=== PATIENT | male | born 1990 | race Caucasian/White ===

== ENCOUNTER 2017-03-05 10:28 | Emergency (ER) | payer OTHER ==
[2017-03-05 10:29] VITALS: BMI 38.0
[2017-03-05 10:32] VITALS: TEMP 98.1
[2017-03-05] MEDS ORDERED: Sodium Chloride 0.9% 1,000 ML IV ONE (11:14)
[2017-03-05] MEDS ORDERED: Aluminum Hydroxide/Magnesium Hydroxide Susp (30 mL) PO STA (11:14)
[2017-03-05 11:23] VITALS: BP 103/46; PULSE 76; RESP 16; O2SAT 97
[2017-03-05] MEDS ORDERED: Aluminum Hydroxide/Magnesium Hydroxide Susp (30 mL) ONE (11:41)
[2017-03-05 12:07] LABS: BASO # 0.1 K/uL (0.0-0.2); BASO % 0.7 % (0.0-2.0); CHLORIDE 102 mmol/L (98-107); EOS # 0.5 K/uL (0.0-0.7); HEMATOCRIT 45.1 % (35.0-51.0); LYMPH # 1.8 K/uL (1.0-4.3); LYMPH % 11.2 % (20.0-40.0); MEAN CELL VOLUME 83.4 fL (80.0-94.0); MEAN CORPUSCULAR HEMOGLOBIN 27.5 pg (27.0-31.0); MEAN CORPUSCULAR HGB CONC 32.9 g/dL (33.0-37.0); MEAN PLATELET VOLUME 7.7 fL (7.2-11.7); MONO % 6.2 % (0.0-10.0); POTASSIUM 4.3 mmol/L (3.6-5.2); RED CELL DISTRIBUTION WIDTH 14.1 % (11.5-14.5); SODIUM 139 mmol/L (132-148); WHITE BLOOD COUNT 15.8 K/uL (4.8-10.8)
[2017-03-05 12:09] LABS: AST/SGOT 21 U/L (17-59); BILIRUBIN,TOTAL 0.6 mg/dL (0.2-1.3); CARBON DIOXIDE 27 mmol/L (22-30); GFR AFRICAN-AMERICAN > 60
[2017-03-05 12:10] LABS: ALB/GLOB RATIO 1.3 (1.0-2.1); ALKALINE PHOSPHATASE 63 U/L (38-126); ALT/SGPT 47 U/L (21-72); BLOOD UREA NITROGEN 15 mg/dL (9-20); CALCIUM 8.6 mg/dl (8.6-10.4); GLUCOSE,RANDOM 94 mg/dL (75-110); TOTAL PROTEIN 7.1 g/dL (6.3-8.3)
--- NOTE | 2017-03-05 12:17 | C.PDOC ---
History Of Present Illness The patient, a 26 y/o male, presents to the ED for evaluation of left upper quadrant abdominal pain associated with nausea and vomiting which began last night after he ate [place] food. Patient reports history of Gastritis and notes he has experienced similar symptoms multiple times in the past. Patient has been evaluated by a specialist in the past, but notes the specialist "just gave me drugs that I couldn't afford." Patient notes he usually takes Pepcid for his symptoms, but found no relief this time. Patient also complains of cough and sore throat. Patient denies fever, chills, bloody vomitus, and diarrhea. Time Seen by Provider: 03/05/17 11:02 Chief Complaint (Nursing): Abdominal Pain History Per: Patient History/Exam Limitations: no limitations Onset/Duration Of Symptoms: Hrs Current Symptoms Are (Timing): Still Present Location Of Pain/Discomfort: LUQ Radiation Of Pain To:: None Quality Of Discomfort: "Pain" Associated Symptoms: Nausea, Vomiting. denies: Fever, Chills Exacerbating Factors: Food Additional History Per: Patient Past Medical History Reviewed: Historical Data, Nursing Documentation, Vital Signs Vital Signs: Last Vital Signs Temp 98.1 F 03/05/17 10:31 Pulse 76 03/05/17 11:22 Resp 16 03/05/17 11:22 BP 103/46 L 03/05/17 11:22 Pulse Ox 97 03/09/17 00:02 - Medical History PMH: Gastritis, GERD, Pneumonia Surgical History: Appendectomy Family History: States: Unknown Family Hx - Social History Hx Tobacco Use: Yes Hx Alcohol Use: Yes Hx Substance Use: Yes - Immunization History Hx Tetanus Toxoid Vaccination: No Hx Influenza Vaccination: Yes (2016) Hx Pneumococcal Vaccination: No Review Of Systems Except As Marked, All Systems Reviewed And Found Negative. Constitutional: Negative for: Fever, Chills ENT: Positive for: Throat Pain Respiratory: Positive for: Cough Gastrointestinal: Positive for: Nausea, Vomiting, Abdominal Pain (LUQ). Negative for: Diarrhea Physical Exam - Physical Exam Appears: Non-toxic, No Acute Distress, Other (+obese) Skin: Normal Color, Warm, Dry Head: Atraumatic, Normacephalic Eye(s): bilateral: Normal Inspection, EOMI Nose: Normal Oral Mucosa: Moist Neck: Supple Chest: Symmetrical, No Deformity, No Tenderness Cardiovascular: Rhythm Regular, No Murmur Respiratory: Normal Breath Sounds, No Rales, No Rhonchi, No Wheezing Gastrointestinal/Abdominal: Soft, Tenderness (left upper quadrant ), No Guarding , No Rebound Back: Normal Inspection, No Vertebral Tenderness, No Paraspinal Tenderness Extremity: Normal ROM, Capillary Refill (less than 2 seconds ) Neurological/Psych: Oriented x3, Normal Speech, Normal Cognition Gait: Steady ED Course And Treatment - Laboratory Results Result Diagrams: 03/05/17 11:56 03/05/17 11:56 O2 Sat by Pulse Oximetry: 97 (on RA) Pulse Ox Interpretation: Normal - Other Rad Abdomen Obstructive Series XR X-Ray: Interpreted by Me, Viewed By Me, Read By Radiologist Interpretation: Accession No. : [id number]. Patient Name / ID : RICARDO CURRAN / [id number]. Exam Date : 03/05/2017 11:23:09 ( Approved ). Study Comment : Sex / Age : M / 26Y. Creator : Bridgette Russell MD. Dictator : Bridgette Russell MD. Medical Assistant Prn : Sorority Supervisor : Bridgette Russell MD. Approver2 : Report Date : 03/05/2017 13:24:10. My Comment : . PROCEDURE: Radiographs of the chest and abdomen (obstructive series). HISTORY: abd pain. COMPARISON: None available. FINDINGS: Examination limited by habitus. CHEST: Cardiomediastinal silhouette appears within normal limits. No focal consolidation, significant pleural effusion, or definite pneumothorax identified.Please note that chest x-ray has limited sensitivity for the detection of pulmonary masses. ABDOMEN AND PELVIS: Nonobstructive bowel gas pattern. No definite free air. Mild constipation. No acute osseous abnormality is detected. IMPRESSION: Mild constipation. - CT Scan/US CT A/P Other Rad Studies (CT/US): Interpreted By Me, Read By Radiologist, Radiology Report Reviewed CT/US Interpretation: Accession No. : [id number]. Patient Name / ID : RICARDO CURRAN / [id number]. Exam Date : 03/05/2017 14:12:23 ( Approved ). Study Comment : Sex / Age : M / 26Y. Creator : Bridgette Russell MD. Dictator : Bridgette Russell MD. Medical Assistant Prn : Sorority Supervisor : Bridgette Russell MD. Approver2 : Report Date : 03/05/2017 14:33:17. My Comment : . PROCEDURE: CT Abdomen and Pelvis with contrast. HISTORY: abd pain. COMPARISON: Abdominal ultrasound performed 04/10/16. TECHNIQUE: Contrast dose : 100 mL Visipaque. Radiation dose: Total exam DLP = 1270.07 mGy-cm. This CT exam was performed using one or more of the following dose reduction techniques : Automated exposure control, adjustment of the mA and/or kV according to patient size, and/or use of iterative reconstruction technique. FINDINGS: LOWER THORAX: No visible consolidation, pleural effusion, or pneumothorax. LIVER: Hepatomegaly. Hypoattenuation of the liver compatible with hepatic steatosis. GALLBLADDER AND BILE DUCTS: Unremarkable. PANCREAS: Unremarkable. SPLEEN: Unremarkable. ADRENALS: Unremarkable. KIDNEYS AND URETERS: The kidneys enhance symmetrically. No hydronephrosis or obstructing calculus identified. VASCULATURE: No aortic aneurysm. BOWEL: Stomach is nondistended. Lack of oral contrast limits evaluation for bowel pathology. Bowel loops appear within normal limits of caliber without evidence of obstruction. Scattered diverticulosis without CT evidence of acute diverticulitis. APPENDIX: Appendectomy. PERITONEUM: No significant free fluid. No definite free air. LYMPH NODES: Unremarkable. BLADDER: Under distention of the urinary bladder precludes adequate evaluation. REPRODUCTIVE: Unremarkable. BONES: No acute osseous abnormality is detected. OTHER FINDINGS: Small fat containing umbilical hernia. Small fat containing inguinal hernias. IMPRESSION: Hepatomegaly. Hepatic steatosis. Scattered diverticulosis without CT evidence of acute diverticulitis. Small fat containing umbilical hernia. Small fat containing bilateral inguinal hernias. Appendectomy. Progress Note: labs, CT A/P, and Obstructive Series Abdomen ordered and reviewed. Patient received Maalox PO, Protonix IV, Toradol IV, Zofran IV, and IV Fluids. On re-evaluation, pt requests to be discharged. 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 Notes pain has imporved. Tolerating PO. Afebrile. Discussed follow up with specialist and return to ER if symptoms persist or worsen. Disposition - Disposition Disposition: HOME/ ROUTINE Disposition Time: 11:30 Condition: STABLE Additional Instructions: Follow up with your primary medical doctor or clinic in 2-5 days for further evaluation. Return to the emergency department at any time if symptoms persist or worsen. Prescriptions: Ondansetron ODT [Zofran ODT] 1 odt PO BID PRN #5 odt PRN Reason: Nausea/Vomiting Instructions: Acute Abdominal Pain (ED) - Clinical Impression Clinical Impression: Abdominal pain - PA / SENIOR SYSTEMS ENGINEER / Resident Statement MD/DO has reviewed & agrees with the documentation as recorded. - Scribe Statement The provider has reviewed the documentation as recorded by the Scribe (Soni Damon) All medical record entries made by the Scribe were at my direction and personally dictated by me. I have reviewed the chart and agree that the record accurately reflects my personal performance of the history, physical exam, medical decision making, and the department course for this patient. I have also personally directed, reviewed, and agree with the discharge instructions and disposition.
[2017-03-05 13:11] LABS: RBC URINE < 1 /hpf (0-3); URINE BILIRUBIN NEGATIVE (NEGATIVE); URINE BLOOD NEGATIVE (NEGATIVE); URINE COLOR Yellow (YELLOW); URINE GLUCOSE (UA) NORMAL (Normal); URINE KETONE NEGATIVE (NEGATIVE); URINE LEUKOCYTE ESTERASE NEG Leu/uL (Negative); URINE PROTEIN NEGATIVE (NEGATIVE); URINE UROBILINOGEN NORMAL mg/dL (0.2-1.0); WBC URINE 7 /hpf (0-5)
--- NOTE | 2017-03-05 13:25 | RAD ---
PROCEDURE: Radiographs of the chest and abdomen (obstructive series) HISTORY: abd pain COMPARISON: None available. FINDINGS: Examination limited by habitus. CHEST: Cardiomediastinal silhouette appears within normal limits. No focal consolidation, significant pleural effusion, or definite pneumothorax identified.Please note that chest x-ray has limited sensitivity for the detection of pulmonary masses. ABDOMEN AND PELVIS: Nonobstructive bowel gas pattern. No definite free air. Mild constipation. No acute osseous abnormality is detected. IMPRESSION: Mild constipation.
[2017-03-05] MEDS ORDERED: Iodixanol 320 MG/ML 100 ML BOTTLE IV ONE (14:02)
--- NOTE | 2017-03-05 14:35 | CT ---
PROCEDURE: CT Abdomen and Pelvis with contrast HISTORY: abd pain COMPARISON: Abdominal ultrasound performed 04/10/16 TECHNIQUE: Contrast dose: 100 mL Visipaque Radiation dose: Total exam DLP = 1270.07 mGy-cm. This CT exam was performed using one or more of the following dose reduction techniques: Automated exposure control, adjustment of the mA and/or kV according to patient size, and/or use of iterative reconstruction technique. FINDINGS: LOWER THORAX: No visible consolidation, pleural effusion, or pneumothorax. LIVER: Hepatomegaly. Hypoattenuation of the liver compatible with hepatic steatosis. GALLBLADDER AND BILE DUCTS: Unremarkable. PANCREAS: Unremarkable. SPLEEN: Unremarkable. ADRENALS: Unremarkable. KIDNEYS AND URETERS: The kidneys enhance symmetrically. No hydronephrosis or obstructing calculus identified. VASCULATURE: No aortic aneurysm. BOWEL: Stomach is nondistended. Lack of oral contrast limits evaluation for bowel pathology. Bowel loops appear within normal limits of caliber without evidence of obstruction. Scattered diverticulosis without CT evidence of acute diverticulitis. APPENDIX: Appendectomy. PERITONEUM: No significant free fluid. No definite free air. LYMPH NODES: Unremarkable. BLADDER: Under distention of the urinary bladder precludes adequate evaluation. REPRODUCTIVE: Unremarkable. BONES: No acute osseous abnormality is detected. OTHER FINDINGS: Small fat containing umbilical hernia. Small fat containing inguinal hernias. IMPRESSION: Hepatomegaly. Hepatic steatosis. Scattered diverticulosis without CT evidence of acute diverticulitis. Small fat containing umbilical hernia. Small fat containing bilateral inguinal hernias. Appendectomy.
== END 2017-03-05 14:52 | disposition home or self-care (01) ==
LOC: C.ER 10:28
DX: R10.12 Left upper quadrant pain (principal)
CPT/HCPCS: 74022; 74177; 80053; 81001; 83690; 85025; 96374; 96375; 99285; C9113; J1885; J2405; J7040; Q9967

== ENCOUNTER 2018-09-03 10:42 | Emergency (ER) | payer SELFPAY ==
[2018-09-03 10:42] VITALS: BMI 38.0
[2018-09-03 11:05] VITALS: BP 153/89; PULSE 84; RESP 18; TEMP 98.1; O2SAT 98
[2018-09-03] MEDS ORDERED: Mag&Al/Simet/Diphen/Lido 237 ML KIT PO STA (11:45)
--- NOTE | 2018-09-03 11:45 | C.PDOC ---
History Of Present Illness 27 y/o male presents to the ED complaining of tongue pain and sores, ongoing for 3 days. Associated with generalized bodyaches. No fever. Denies any other rash, cough, difficulty swallowing, SOB, or associated symptoms. Denies hx of smoking tobacco, but admits to smoking marijuana. Time Seen by Provider: 09/03/18 11:32 Chief Complaint (Nursing): ENT Problem History Per: Patient History/Exam Limitations: no limitations Onset/Duration Of Symptoms: Days (x3) Current Symptoms Are (Timing): Still Present Past Medical History Reviewed: Historical Data, Nursing Documentation, Vital Signs Vital Signs: Last Vital Signs Temp 98.1 F 09/03/18 10:52 Pulse 84 09/03/18 10:52 Resp 18 09/03/18 10:52 BP 153/89 H 09/03/18 10:52 Pulse Ox 98 09/03/18 10:52 - Medical History PMH: Gastritis, GERD, Pneumonia Surgical History: Appendectomy Family History: States: Unknown Family Hx - Social History Hx Tobacco Use: Yes Hx Alcohol Use: Yes Hx Substance Use: Yes - Immunization History Hx Tetanus Toxoid Vaccination: No Hx Influenza Vaccination: No Hx Pneumococcal Vaccination: No Review Of Systems Except As Marked, All Systems Reviewed And Found Negative. Constitutional: Negative for: Fever, Chills ENT: Positive for: Mouth Pain (and sores). Negative for: Mouth Swelling, Throat Swelling Respiratory: Negative for: Cough, Shortness of Breath Physical Exam - Physical Exam Appears: Non-toxic, No Acute Distress Skin: Warm, Dry Head: Atraumatic, Normacephalic Eye(s): bilateral: Normal Inspection, PERRL, EOMI Oral Mucosa: Moist, No Drooling Tongue: No Swelling, Lesions (Vesicles over the midline tongue with localized tenderness) Throat: Normal (no swelling, airway is patent), No Erythema Neck: Normal ROM, Supple Pulses: Left Radial: Normal, Right Radial: Normal Neurological/Psych: Oriented x3, Normal Speech ED Course And Treatment O2 Sat by Pulse Oximetry: 98 (RA) Pulse Ox Interpretation: Normal Medical Decision Making Medical Decision Making: Plan: * Motrin 600 mg PO * Tylenol 650 mg PO * Magic mouthwash 30ml PO Will d/c patient home with prescriptions for the same. Patient counseled regarding diagnosis and the need for follow up. Advised to avoid smoking and eating extreme spicy/hot foods. Disposition Counseled Patient/Family Regarding: Diagnosis, Need For Followup, Rx Given - Disposition Referrals: [facility] [Outside] [facility] [Outside] Disposition: HOME/ ROUTINE Disposition Time: 11:45 Condition: IMPROVED Prescriptions: RX: Dexamethasone [Decadron] 12 mg PO ONCE #2 tablet Ibuprofen [Motrin] 600 mg PO Q6 #30 tab Mag&Al/Simet/Diphen/Lido [First Magic Mouthwash] 5 ml MM BID #1 kit Instructions: Mouth Sores (DC) Forms: [employer] ([place]), Work Excuse - Clinical Impression Clinical Impression: Tongue sore - Scribe Statement The provider has reviewed the documentation as recorded by the Sherry Hernandez Provider Attestation: All medical record entries made by the Sherry were at my direction and personally dictated by me. I have reviewed the chart and agree that the record accurately reflects my personal performance of the history, physical exam, medical decision making, and the department course for this patient. I have also personally directed, reviewed, and agree with the discharge instructions and disposition.
== END 2018-09-03 12:15 | disposition home or self-care (01) ==
LOC: C.ER 10:42
DX: K14.9 Disease of tongue, unspecified (principal)

== ENCOUNTER 2019-02-10 14:18 | Emergency (ER) | payer MEDICAID ==
[2019-02-10 14:19] VITALS: BMI 38.0
[2019-02-10 15:42] LABS: BASO # 0.1 K/uL (0.0-0.2); BASO % 0.6 % (0.0-2.0); EOS # 0.4 K/uL (0.0-0.7); EOS % 4.3 % (0.0-4.0); HEMOGLOBIN 15.5 g/dL (12.0-18.0); LYMPH # 1.9 K/uL (1.0-4.3); LYMPH % 18.3 % (20.0-40.0); MEAN CELL VOLUME 84.5 fL (80.0-94.0); MEAN CORPUSCULAR HEMOGLOBIN 28.8 pg (27.0-31.0); MEAN CORPUSCULAR HGB CONC 34.1 g/dL (33.0-37.0); MEAN PLATELET VOLUME 7.2 fL (7.2-11.7); MONO # 0.7 K/uL (0.0-0.8); MONO % 6.5 % (0.0-10.0); NEUT # 7.4 K/uL (1.8-7.0); NEUT % 70.3 % (50.0-75.0); NRBC % 0.1 % (0.0-2.0); RBC 5.37 Mil/uL (4.40-5.90); RED CELL DISTRIBUTION WIDTH 13.8 % (11.5-14.5); WHITE BLOOD COUNT 10.4 K/uL (4.8-10.8)
[2019-02-10 16:01] LABS: ALB/GLOB RATIO 1.2 (1.0-2.1); ALBUMIN 4.2 g/dL (3.5-5.0); ALT/SGPT 66 U/L (21-72); AST/SGOT 31 U/L (17-59); BLOOD UREA NITROGEN 15 mg/dL (9-20); CALCIUM 9.3 mg/dl (8.6-10.4); GFR NON-AFRICAN AMERICAN > 60; LIPASE 28 U/L (23-300)
--- NOTE | 2019-02-10 16:17 | C.PDOC ---
History Of Present Illness 28 year old male presents to ED with complaint of left upper quadrant pain with associated nausea and vomiting every single day for the past 6 months. Patient states that he goes through 1 bottle of Pepcid a week. He has not been seen by PMD or behavioral health aide because he just got insurance. Patient denies fever, diarrhea, weight loss, hematuria, and dysuria. Time Seen by Provider: 02/10/19 14:44 Chief Complaint (Nursing): Abdominal Pain History Per: Patient History/Exam Limitations: no limitations Onset/Duration Of Symptoms: Other (6 months) Current Symptoms Are (Timing): Still Present Location Of Pain/Discomfort: LUQ Radiation Of Pain To:: None Quality Of Discomfort: "Pain" Associated Symptoms: Nausea, Vomiting. denies: Fever, Chills, Diarrhea, Urinary Symptoms Exacerbating Factors: None Past Medical History Reviewed: Historical Data, Nursing Documentation, Vital Signs Vital Signs: Last Vital Signs Temp 97.3 F L 02/10/19 14:31 Pulse 85 02/10/19 14:31 Resp 20 02/10/19 14:31 BP 139/96 H 02/10/19 14:31 Pulse Ox 96 02/10/19 14:31 Primary Care Provider: FAMILY PROVIDER,NO - Medical History PMH: Gastritis, GERD, Pneumonia Surgical History: Appendectomy Family History: States: Unknown Family Hx - Social History Hx Tobacco Use: Yes Hx Alcohol Use: Yes Hx Substance Use: Yes - Immunization History Hx Tetanus Toxoid Vaccination: No Hx Influenza Vaccination: Yes (2015) Hx Pneumococcal Vaccination: No Review Of Systems Constitutional: Negative for: Fever, Chills, Weakness, Weight loss Gastrointestinal: Positive for: Nausea, Vomiting, Abdominal Pain (left upper quadrant). Negative for: Diarrhea Genitourinary: Negative for: Dysuria, Hematuria Physical Exam - Physical Exam Appears: Non-toxic, No Acute Distress, Other (morbidly obese) Skin: Normal Color, Warm, Dry Head: Atraumatic, Normacephalic Neck: Normal ROM, Supple Chest: Symmetrical, No Deformity Cardiovascular: Rhythm Regular, No Murmur Respiratory: No Accessory Muscle Use, No Rales, No Rhonchi, No Wheezing Gastrointestinal/Abdominal: Soft, Tenderness (epigastric and left upper quadrant tenderness), No Other (McBurney's point tenderness and Bailon's sign) Extremity: Capillary Refill (<2 seconds) Pulses: Left Radial: Normal, Right Radial: Normal Neurological/Psych: Oriented x3, Normal Speech, Normal Cognition ED Course And Treatment - Laboratory Results Result Diagrams: 02/10/19 15:38 02/10/19 15:38 Lab Results: Total Bilirubin 0.7 mg/dL (0.2-1.3) 02/10/19 15:38 AST 31 U/L (17-59) 02/10/19 15:38 ALT 66 U/L (21-72) 02/10/19 15:38 Alkaline Phosphatase 74 U/L (38-126) 02/10/19 15:38 Total Protein 7.6 g/dL (6.3-8.3) 02/10/19 15:38 Albumin 4.2 g/dL (3.5-5.0) 02/10/19 15:38 Globulin 3.4 gm/dL (2.2-3.9) 02/10/19 15:38 Albumin/Globulin Ratio 1.2 (1.0-2.1) 02/10/19 15:38 Lipase 28 U/L (23-300) 02/10/19 15:38 O2 Sat by Pulse Oximetry: 96 (in RA) Pulse Ox Interpretation: Normal Progress Note: CMP, lipase, TSH, CBC, and UA. Patient given Protonix IVP. Disposition Counseled Patient/Family Regarding: Studies Performed, Diagnosis, Need For Followup, Rx Given - Disposition Referrals: [facility] [Outside] Souleymane Cabral MD [Staff Provider] - Disposition: HOME/ ROUTINE Disposition Time: 17:35 Condition: STABLE Additional Instructions: FOLLOW UP WITH GI WITHIN 1 WEEK USE PROTONIX DAILY RETURN TO ER IF SYMPTOMS WORSEN Prescriptions: Pantoprazole [Protonix EC Tab] 20 mg PO DAILY #30 ect Instructions: Dyspepsia (DC) Forms: [employer] (Turkish) Print Language: SINHALA - Clinical Impression Clinical Impression: Dyspepsia - Scribe Statement The provider has reviewed the documentation as recorded by the Scribe (Alyssa Dickey) All medical record entries made by the Scribe were at my direction and personally dictated by me. I have reviewed the chart and agree that the record accurately reflects my personal performance of the history, physical exam, medical decision making, and the department course for this patient. I have also personally directed, reviewed, and agree with the discharge instructions and disposition.
[2019-02-10 17:02] LABS: SQUAMOUS EPITHIAL 1 /hpf (0-5); URINE BACTERIA OCC (<OCC); URINE BILIRUBIN NEGATIVE (NEGATIVE); URINE BLOOD NEGATIVE (NEGATIVE); URINE CLARITY Clear (Clear); URINE COLOR Yellow (YELLOW); URINE GLUCOSE (UA) NORMAL (Normal); URINE LEUKOCYTE ESTERASE NEG Leu/uL (Negative); URINE PROTEIN NEGATIVE (NEGATIVE); URINE UROBILINOGEN NORMAL mg/dL (0.2-1.0)
[2019-02-10 17:50] VITALS: BP 124/77; PULSE 89; RESP 18; TEMP 98; O2SAT 97
== END 2019-02-10 17:50 | disposition home or self-care (01) ==
LOC: C.ER 14:18
DX: R10.13 Epigastric pain (principal); Z87.891 Personal history of nicotine dependence
CPT/HCPCS: 80053; 81001; 83690; 84443; 85025; 96374; 99284; C9113